=== PATIENT | male | born 1960 | race Caucasian/White ===

== ENCOUNTER 2021-04-18 05:17 | Day surgery (SDC) | payer OTHER ==
[2021-04-16 15:18] VITALS: BMI 31.1
[2021-04-18 13:48] VITALS: TEMP 97.8
[2021-04-18 14:36] VITALS: BP 108/74; PULSE 82
== END 2021-04-18 14:30 | disposition home or self-care (01) ==
LOC: JASU-ENDO 05:17
PROVIDERS: ATTEND Internal Medicine Gastroenterology
PROC: 0DJD8ZZ Inspection of Lower Intestinal Tract, Via Natural or Artificial Opening Endoscopic (ICD-10-PCS; principal; 2021-04-18 13:04)
DX: Z12.11 Encounter for screening for malignant neoplasm of colon (principal); K64.8 Other hemorrhoids; Z83.71 Family history of colonic polyps

== ENCOUNTER 2023-10-30 11:55 | Emergency (ER) | payer OTHER ==
[2023-10-30 12:16] VITALS: BP 130/77; PULSE 91; RESP 18; TEMP 98.3; BMI 31.1
[2023-10-30 13:17] LABS: BASO % 1.2 % (0-2.0); EOS % 1.8 % (0-4.5); HEMATOCRIT 43.4 % (35.4-49); HEMOGLOBIN 14.6 GM/dL (11.7-16.9); LYMPH % 35.8 % (8-40); MCH 30.7 pg (25.7-33.7); MCHC 33.6 g/dl (32.0-35.9); MEAN CELL VOLUME 91.3 fl (80-96); MONO % 9.2 % (3.8-10.2); PLATELET COUNT 316 10^3/uL (134-434); RBC 4.75 M/mm3 (4.00-5.60); RDW 14.5 % (11.9-15.9); WHITE BLOOD COUNT 7.9 K/mm3 (4.0-10.0)
[2023-10-30 13:33] LABS: INR 0.98 (0.83-1.09); PROTHROMBIN TIME (PATIENT) 11.4 SEC (9.7-13.0)
[2023-10-30 13:36] LABS: ACTIVATED PTT 31.2 SECONDS (25.2-36.5)
[2023-10-30 13:40] LABS: CALCIUM 8.9 mg/dL (8.5-10.1)
[2023-10-30 13:41] LABS: ALBUMIN 4.1 g/dl (3.4-5.0); BLOOD UREA NITROGEN 15.6 mg/dL (7-18); POTASSIUM 4.9 mmol/L (3.5-5.1)
[2023-10-30 13:44] LABS: CREATININE 0.8 mg/dL (0.55-1.3)
[2023-10-30 13:45] LABS: TOT PROT 7.4 g/dl (6.4-8.2)
[2023-10-30 13:46] LABS: BILIRUBIN,TOTAL 0.4 mg/dL (0.2-1)
[2023-10-30] MEDS ORDERED: ALBUTEROL SO4 2.5/IPRATROPIUM 0.5 INH SOL 3 ML VIAL.NEB. NEB ONE ×2 (15:51→16:06)
== END 2023-10-30 17:38 | disposition home or self-care (01) ==
LOC: JER 11:55
PROC: 3E0F7GC Introduction of Other Therapeutic Substance into Respiratory Tract, Via Natural or Artificial Opening (ICD-10-PCS; principal; 2023-10-30)
DX: R07.81 Pleurodynia (principal); R06.02 Shortness of breath; R00.2 Palpitations; M94.0 Chondrocostal junction syndrome [Tietze]; Z20.822 Contact with and (suspected) exposure to COVID-19
CPT/HCPCS: 0241U-QW; 36415; 71046-TC-FY; 71250-TC; 76604; 80053; 84484; 85025; 85379; 85610; 85730; 93005; 93010; 93308; 99285-25